=== PATIENT | female | born 1945 | race Caucasian/White ===

== ENCOUNTER 2021-04-24 12:47 | Outpatient (CLI) | payer OTHER, SELFPAY ==
--- NOTE | ~2021-04-24 | XR_ITS ---
XR foot LT min 3V DATE: 04/24/2021 13:29 INDICATION: Mid foot pain after fall today TECHNIQUE: 4 views COMPARISON: None FINDINGS: Diffuse osteopenia. There is hallux valgus and bunion deformity. Plantar calcaneal enthesopathy. Os tibiale externum. No recent fracture or dislocation, periosteal reaction or bone destruction. IMPRESSION: Hallux valgus and bunion deformity Plantar calcaneal enthesopathy Reviewed, dictated and finalized at location A.
== END 2021-04-24 12:48 | disposition home or self-care (01) ==
LOC: CHSIMG 12:52
PROVIDERS: PCP Internal Medicine; Visit Provider Internal Medicine
DX: M79.672 Pain in left foot (principal)
CPT/HCPCS: 73630

== ENCOUNTER 2022-10-25 13:04 | Emergency (ER) | payer OTHER, SELFPAY ==
--- NOTE | ~2022-10-25 | XR_ITS ---
XR knee RT 3V, XR tibia fibula RT 2V 10/25/2022 16:00 Indication: Right knee pain after fall Procedure: 3 views right knee and 2 views right tibia/fibula Comparison: No prior studies for comparison. Findings: There is a right total knee arthroplasty. Prosthesis well seated. No acute fracture, sublux ation or dislocation. No significant joint effusion. Osteopenia. Impression: 1: No acute fracture. Reviewed, dictated and finalized at location A. Y TECH Impression: 1: No acute fracture. Impression: 1: No acute fracture.
--- NOTE | ~2022-10-25 | XR_ITS ---
EXAMINATION: XR wrist RT min 3V DATE: 10/25/2022 16:01 INDICATION: Medial right wrist pain post fall TECHNIQUE: Posteroanterior, ulnar deviation, oblique, and lateral views of the right wrist were obtai jeo. COMPARISON: none FINDINGS: Bone alignment is normal. Diffuse osteopenia. No fracture. Polyarticular osteoarthritis, moderate sev erity at the triscaphe and first interphalangeal joints and mild at the wrist, midcarpal, first carpo metacarpal, first and second metacarpophalangeal and remaining at the remaining proximal interphalang eal joints. Soft tissues are unremarkable. IMPRESSION: 1. Mild to moderate polyarticular osteoarthritis at the right hand and wrist. No acute osseous abnorm ality. Reviewed, dictated and finalized at location A. HUNTER IMPRESSION: 1. Mild to moderate polyarticular osteoarthritis at the right hand and wrist. N o acute osseous abnormality.
--- NOTE | ~2022-10-25 | XR_ITS ---
EXAMINATION: XR ankle RT 2V DATE: 10/25/2022 15:59 INDICATION: Right ankle pain. Fall. TECHNIQUE: 2 views of right ankle were obtained. COMPARISON: None. FINDINGS: Bone alignment is normal. No fracture. There is mild midfoot osteoarthritis. There are enth esophytes at the posterior and plantar aspects of calcaneal tuberosity. IMPRESSION: 1. Mild polyarticular osteoarthritis. Reviewed, dictated and finalized at location A. PATIONAL THERAPY DIRECTOR
[2022-10-25 13:48] VITALS: BP 162/74; PULSE 92; RESP 16; TEMP 36.5; O2SAT 99
--- NOTE | 2022-10-25 15:37 | ED.GENADULT ---
HPI - General Adult General Chief complaint: Fall Stated complaint: fall with right lower leg pain Time Seen by Provider: 10/25/22 15:23 History of Present Illness HPI narrative: 76-year-old female presented to the emergency department for evaluation of right arm and right leg pain. Patient states she was at a local restaurant and was walking on a wet floor and had a ground-level fall. Patient states that she did injure her right wrist and right lower leg. Patient states she did not injure her right hip but was recently replaced. Patient states she did not strike her head and had no loss of consciousness. Related Data Allergies Allergy/AdvReac Type Severity Reaction Status Date / Time No Known Allergies Allergy Mild Verified 10/25/22 13:06 Review of Systems Review of Systems: CONSTITUTIONAL: Denies fever, chills, or sweats. EYES: Denies visual changes, redness, or discharge. ENT: Denies rhinorrhea, congestion, sore throat, or otalgia. CARDIOVASCULAR: Denies chest pain, palpitations, or edema. RESPIRATORY: Denies cough or dyspnea. GASTROINTESTINAL: Denies abdominal pain, nausea, vomiting, or diarrhea. GENITOURINARY: Denies dysuria or hematuria. SKIN: Denies rash or itching. MUSCULOSKELETAL: See HPI NEUROLOGIC: Denies headache, numbness, or weakness. Exam Narrative: APPEARANCE: Well appearing, no pain, no distress, well-nourished. HEAD: normocephalic, atraumatic. EYES: PERRLA/EOMI, conjunctivae clear. NOSE: Normal no drainage EARS:TMS clear with good light reflex. THROAT: Pharynx clear, no exudate. NECK: Supple. No adenopathy, no masses. RESPIRATORY: Airway patent, respirations nonlabored. Clear to auscultation bilaterally, no rales, rhonchi, wheezing. CARDIOVASCULAR: Regular rate and rhythm without murmurs rubs or gallops. ABDOMINAL: Soft, nontender, nondistended, normal bowel sounds MUSCULOSKELETAL: Moves all extremities. Tenderness to right wrist. Tenderness to right knee. Tenderness to right lateral lower extremity. And tenderness to right ankle. No ecchymosis or deformity. NEURO: Alert. Cranial nerves II through XII intact. Grossly intact SKIN: Warm, dry. Normal Color Course Course Emergency Course: 76-year-old female with complaint of right-sided pain after a ground-level fall. X-rays were ordered to rule out acute fracture. 4:51 PM patient was able to ambulate at her baseline. Patient was updated the results of her x-ray showing no acute fracture or dislocation. Patient was encouraged to have close follow-up with her primary care physician. All questions concerns were addressed and patient was well-appearing at time of discharge. Vital Signs Vital signs: Vital Signs Temperature 97.7 F 10/25/22 13:48 Pulse Rate 92 10/25/22 13:48 Respiratory Rate 16 10/25/22 13:48 Blood Pressure 162/74 H 10/25/22 13:48 Pulse Oximetry 99 10/25/22 13:48 Temperature 97.7 F 10/25/22 13:48 Pulse Rate 92 10/25/22 13:48 Respiratory Rate 16 10/25/22 13:48 Blood Pressure 162/74 H 10/25/22 13:48 Pulse Oximetry 99 10/25/22 13:48 Medical Decision Making Vital Signs Vital Signs: Vital Signs Temperature 97.7 F 10/25/22 13:48 Pulse Rate 92 10/25/22 13:48 Respiratory Rate 16 10/25/22 13:48 Blood Pressure 162/74 H 10/25/22 13:48 Pulse Oximetry 99 10/25/22 13:48 Temperature 97.7 F 10/25/22 13:48 Pulse Rate 92 10/25/22 13:48 Respiratory Rate 16 10/25/22 13:48 Blood Pressure 162/74 H 10/25/22 13:48 Pulse Oximetry 99 10/25/22 13:48 Imaging Data Radiologist's impression: Impressions Ankle X-Ray 10/25/22 16:02 IMPRESSION: 1. Mild polyarticular osteoarthritis. Knee X-Ray 10/25/22 16:03 Impression: 1: No acute fracture. Tibia/Fibula X-Ray 10/25/22 16:03 Impression: 1: No acute fracture. Wrist X-Ray 10/25/22 16:04 IMPRESSION: 1. Mild to moderate polyarticular osteoarthritis at the right hand and wrist. No acute osseous ab
== END 2022-10-25 17:10 | disposition home or self-care (01) ==
PROVIDERS: Emergency Provider Emergency Medicine; PCP Internal Medicine
DX: S69.91XA Unspecified injury of right wrist, hand and finger(s), initial encounter (principal); S89.91XA Unspecified injury of right lower leg, initial encounter; M19.071 Primary osteoarthritis, right ankle and foot; M19.031 Primary osteoarthritis, right wrist; M18.9 Osteoarthritis of first carpometacarpal joint, unspecified; M19.041 Primary osteoarthritis, right hand; W01.0XXA Fall on same level from slipping, tripping and stumbling without subsequent striking against object, initial encounter
CPT/HCPCS: 73110; 73562; 73590; 73600; 99284

== ENCOUNTER 2023-02-17 14:20 | Emergency (ER) | payer OTHER, SELFPAY ==
--- NOTE | 2023-02-17 14:20 | ECG_ITS ---
Measurements Intervals [place] Rate: 77 P: 16 NV: 162 QRS: -38 QRSD: 133 T: 17 QT: 420 QTc: 478 Interpretive Statements SINUS RHYTHM WITH FREQUENT ATRIAL PREMATURE COMPLEXES LEFT AXIS DEVIATION [QRS AXIS < -30] INTRAVENTRICULAR CONDUCTION DELAY [130+ ms QRS DURATION] VOLTAGE CRITERIA FOR LVH [MEETS CRITERIA IN ONE OF: R(aVL), S(V1), R(V5), R(V5/V6)+S(V1)] NO PREVIOUS ECG AVAILABLE FOR COMPARISON Electronically Signed On 02-18-2023 15:32:53 CDT by Nehemias Atkins M.D.
[2023-02-17 14:21] VITALS: BP 166/90; PULSE 79; RESP 16; TEMP 36.8; O2SAT 97
[2023-02-17 14:25] VITALS: PULSE 77
[2023-02-17] MEDS: MECLIZINE HCL 25 MG TABLET PO (14:48)
[2023-02-17] MEDS: SODIUM CHLORIDE 0.9% IV 1,000 ML 999 ML IV CONT (14:49)
--- NOTE | 2023-02-17 14:57 | ED.DIZZY ---
HPI - Dizziness General Chief Complaint: Dizziness Stated Complaint: lightheaded/dizzy Time Seen by Provider: 02/17/23 14:21 History of Present Illness HPI Narrative: Patient is a 77-year-old female who presents ER with dizziness. Patient reports she is at home when she felt a sensation like her heart was racing. She sat down and was very dizzy. The dizziness was rotational in nature. She became diaphoretic and nauseous. Reports symptoms resolved on their own. Will worsen if she moves her head up and down. No recent sinus congestion or sore throat or cough. No ringing in the ears. Related Data Allergies Allergy/AdvReac Type Severity Reaction Status Date / Time No Known Allergies Allergy Mild Verified 02/17/23 14:28 Review of Systems Review of Systems: All systems reviewed & are unremarkable except as noted in HPI and below Constitutional: Constitutional: Denies chills, Denies fatigue and Denies weakness ENT: Reports dizziness, Denies nasal congestion and Denies sore throat Cardiovascular: Cardiovascular: Denies chest pain, Denies rapid heart rate and Denies radiating jaw, neck or arm pain Respiratory: Respiratory: Denies cough and Denies dyspnea Gastrointestinal: Gastrointestinal: Denies abdominal pain, Reports nausea and Denies vomiting Genitourinary: Genitourinary: Denies dysuria and Denies flank pain Musculoskeletal: Musculoskeletal: Denies arthralgias and Reports muscle cramps (left calf) Exam Narrative: GENERAL: Well-appearing, well-nourished, and in no acute distress. HEAD: Normocephalic, atraumatic. EYES: PERRL and EOMI. ENT: Mucous membranes moist. Left ear cerumen impaction. Normal right ear canal and TM. CHEST: Clear to auscultation. No respiratory distress. HEART: Regular rate and rhythm. Normal peripheral pulses. ABDOMEN: Soft, nontender, nondistended. EXTREMITIES: Normal range of motion. No edema. SKIN: Warm, dry, no rash. NEURO: Alert and oriented x3. No facial droop. Clear speech. PSYCH: Normal mood and affect. Course Course Emergency Course: Patient resting comfortably. Ambulatory with a steady gait. CBC normal. BMP unremarkable as well. Patient is received IV fluids and meclizine. Her left ear has been irrigated and the large cerumen impaction removed. Patient appropriate for discharge. Vital Signs Vital signs: Vital Signs Temperature 98.2 F 02/17/23 14:21 Pulse Rate 79 02/17/23 14:21 Respiratory Rate 16 02/17/23 14:21 Blood Pressure 166/90 H 02/17/23 14:21 Pulse Oximetry 97 02/17/23 14:21 Oxygen Delivery Room Air 02/17/23 14:21 Temperature 98.2 F 02/17/23 14:21 Pulse Rate 78 02/17/23 17:10 Respiratory Rate 18 02/17/23 17:10 Blood Pressure 160/70 H 02/17/23 17:10 Pulse Oximetry 96 02/17/23 17:10 Oxygen Delivery Room Air 02/17/23 14:21 Procedures Ear Wax Removal Left Ear: Ear Wax Removal Date: 02/17/23 Ear Wax Removal Time: 16:40 Cerumenolytic Used: other (warm water) Results: Re-examined: cerumen removed completely TM Examination: TM(s) intact, normal appearance Ear Canal Exam: atraumatic Patient Tolerated Procedure: well Complications: no problems Technique: ear canal irrigated and ear canal curetted MDM - Dizziness Lab Data 02/17/23 14:55 02/17/23 16:02 Labs: Lab Results 02/17/23 02/17/23 Range/Units 14:55 16:02 WBC 8.2 (4.5-10.0) K/mm3 RBC 4.61 (4.2-5.4) M/mm3 Hgb 14.2 (12.0-15.0) g/dL Hct 43.6 (37.0-47.0) % MCV 94.6 (80-100) fl MCH 30.8 (26-34) pg MCHC 32.6 (32-36) g/dl RDW 13.2 (11.5-14.5) % Plt Count 282 (150-375) k/mm3 MPV 10.3 (7.4-10.4) fl Immature Gran % (Auto) 0.2 (0-0.5) % Neut % (Auto) 64.0 (45.5-73.1) % Lymph % (Auto) 22.3 (18.3-44.2) % [place] % (Auto) 9.5 H (2.6-8.5) % Eos % (Auto) 2.9 (0-4.4) % Baso % (Auto) 1.1 (0.2-1.2) % Lymph # (Auto)
[2023-02-17 15:01] LABS: Basophils Absolute Auto 0.1 K/mm3 (0.0-0.1); Basophils Percent Auto 1.1 % (0.2-1.2); Eosinophils Absolute Auto 0.2 K/mm3 (0-0.3); Eosinophils Percent Auto 2.9 % (0-4.4); Hematocrit 43.6 % (37.0-47.0); Hemoglobin 14.2 g/dL (12.0-15.0); Immature Granulocyte Absolute 0.02 K/mm3 (0.00-0.031); Immature Granulocyte Percent A 0.2 % (0-0.5); Lymphocytes Absolute Auto 1.83 K/mm3 (0.9-3.2); Lymphocytes Percent Auto 22.3 % (18.3-44.2); Mean Corpuscular HGB Conc 32.6 g/dl (32-36); Mean Corpuscular Hemoglobin 30.8 pg (26-34); Mean Corpuscular Volume 94.6 fl (80-100); Mean Platelet Volume 10.3 fl (7.4-10.4); Monocytes Absolute Auto 0.8 K/mm3 (0.1-0.6); Monocytes Percent Auto 9.5 % (2.6-8.5); Neutrophils Absolute Auto 5.2 K/mm3 (1.3-6.7); Platelet Count Result 282 k/mm3 (150-375); Red Blood Count 4.61 M/mm3 (4.2-5.4); Red Cell Distribution Width 13.2 % (11.5-14.5); White Blood Count 8.2 K/mm3 (4.5-10.0)
[2023-02-17 15:30] VITALS: BP 145/55; PULSE 79; RESP 18; O2SAT 97
[2023-02-17 16:17] LABS: Alanine Aminotransferase 17 U/L (6-35); Albumin Level 4.3 g/dL (3.5-5.1); Alkaline Phosphatase 114 U/L (38-126); Anion Gap 5 mmol/L (8-16); Aspartate Amino Transferase 29 U/L (14-36); Bilirubin,Total 0.4 mg/dL (0.2-1.3); Blood Urea Nitrogen 12 mg/dL (7-17); Calcium 8.6 mg/dL (8.4-10.2); Carbon Dioxide 28 mmol/L (22-30); Chloride 108 mmol/L (98-107); Estimated CRCL calculation 51 ml/min; Estimated Glomerular Filt Rate 60; Glucose 102 mg/dL (65-110); Potassium 3.8 mmol/L (3.4-5.0); Sodium 141 mmol/L (137-145)
[2023-02-17 17:10] VITALS: BP 160/70; PULSE 78; RESP 18; O2SAT 96
[2023-02-17 17:40] VITALS: BP 139/76; PULSE 80; RESP 20; O2SAT 100
== END 2023-02-17 17:41 | disposition home or self-care (01) ==
PROVIDERS: Emergency Provider Emergency Medicine; PCP Internal Medicine
DX: H61.22 Impacted cerumen, left ear (principal); R42 Dizziness and giddiness
CPT/HCPCS: 36415; 69210; 80053; 85025; 93005; 96360; 99283; A9270; J7030